=== PATIENT | male | born 1975 | race Caucasian/White ===

== ENCOUNTER 2020-05-18 09:43 | Outpatient (REF) | payer BC, SELFPAY ==
[2020-05-18 12:06] LABS: Alanine Aminotransferase 31 U/L (0-40); Albumin Level 4.6 g/dL (3.5-5.0); Alkaline Phosphatase 75 U/L (39-117); Anion Gap 10 (12-20); Aspartate Amino Transferase 24 U/L (5-37); Bilirubin Total 0.7 mg/dL (0.0-1.0); Blood Urea Nitrogen 17 mg/dL (9-16); Carbon Dioxide 28 mmol/L (22-29); Chloride 104 mmol/L (96-108); Cholesterol 156 mg/dL; Estimated Glomerular Filt Rate > 60; Glucose Fasting 89 mg/dL (60-99); HDL Cholesterol 36 mg/dL; LDL Cholesterol Calculated 84 mg/dl; Potassium 4.4 mmol/L (3.3-5.1); Sodium 138 mmol/L (135-145); Total Protein 7.4 g/dL (6.5-8.0); Triglycerides 180 mg/dL
[2020-05-18 12:15] LABS: TSH reflex Free T4 1.62 uIU/mL (0.32-4.0)
== END 2020-05-18 09:44 | disposition home or self-care (01) ==
LOC: HO.HMGCLDS 09:43
PROVIDERS: PCP Nurse Practitioner Family; Visit Provider Nurse Practitioner Family
DX: Z00.00 Encounter for general adult medical examination without abnormal findings (principal)
CPT/HCPCS: 36415; 80053; 80061; 84443

== ENCOUNTER 2021-04-18 14:07 | Outpatient (REF) | payer BC, SELFPAY ==
[2021-04-18 14:28] LABS: Binax Internal Control QC Valid; Binax Now Covid-19 Ag Negative (Negative); Binax Performed by: HO.BONILM
== END 2021-04-18 14:08 | disposition home or self-care (01) ==
LOC: HO.HMGCLDS 14:07
PROVIDERS: PCP Nurse Practitioner Family; Visit Provider Internal Medicine
DX: Z13.89 Encounter for screening for other disorder (principal)

== ENCOUNTER 2021-05-19 07:12 | Outpatient (REF) | payer BC, SELFPAY ==
[2021-05-19 11:21] LABS: MANUAL DIFF FLAG NO
[2021-05-19 11:29] LABS: Basophils Absolute Auto 0.1 X10*3/uL (0.0-0.2); Eosinophils Absolute Auto 0.2 X10*3/uL (0.0-0.4); Eosinophils Percent Auto 3.4 % (0-4); Hematocrit 43.9 % (42.0-52.0); Imm Gran Abs Auto 0.04 X10*3/uL (0.00-0.03); Imm Gran Pct Auto 0.6 % (0.0-0.4); Lymphocytes Absolute Auto 1.9 X10*3/uL (1.2-4.9); Mean Corpuscular HGB Conc 34.2 g/dl (31.0-36.0); Mean Corpuscular Hemoglobin 31.3 pg (27.0-33.0); Mean Corpuscular Volume 91.6 fL (80.0-98.0); Mean Platelet Volume 11.4 fL (9.4-12.4); Monocytes Absolute Auto 0.7 X10*3/uL (0.1-1.2); Monocytes Percent Auto 9.1 % (2-11); Neutrophils Absolute Auto 4.3 x10*3/uL (2.0-8.3); Neutrophils Percent Auto 59.9 % (45-73); Platelet Count 207 X10*3/uL (160-400); Red Blood Count 4.79 X10*6/uL (4.60-5.80); White Blood Count 7.1 X10*3/uL (4.8-10.8)
[2021-05-19 11:58] LABS: Appearance Urine CLEAR; Color Urine YELLOW; Glucose Urine UA NEG (NEG); Leukocyte Esterase Urine NEG (NEG); Nitrite Urine NEG (NEG); PH 5.5 (5.0-8.0); Specific Gravity - Urine 1.015 (1.005-1.025); UACC Culture Trigger NO; Urine Blood TRACE (NEG); Urine Ketones NEG (NEG); Urine Protein NEG (NEG-TRACE)
[2021-05-19 12:01] LABS: Alanine Aminotransferase 34 U/L (0-40); Albumin Level 4.2 g/dL (3.5-5.0); Alkaline Phosphatase 80 U/L (39-117); Anion Gap 12 (12-20); Aspartate Amino Transferase 35 U/L (5-37); Bilirubin Total 0.9 mg/dL (0.0-1.0); Blood Urea Nitrogen 19 mg/dL (9-16); Calcium 9.6 mg/dL (8.4-10.2); Carbon Dioxide 28 mmol/L (22-29); Chloride 102 mmol/L (96-108); Cholesterol 208 mg/dL; Estimated Glomerular Filt Rate 47; Glucose Fasting 93 mg/dL (60-99); HDL Cholesterol 40 mg/dL; LDL Cholesterol Calculated 105 mg/dl; Potassium 4.7 mmol/L (3.3-5.1); Sodium 137 mmol/L (135-145); Total Protein 7.9 g/dL (6.5-8.0); Triglycerides 318 mg/dL
[2021-05-19 12:02] LABS: TSH reflex Free T4 2.64 uIU/mL (0.32-4.0)
[2021-05-19 12:17] LABS: WBC Urine 0-2 /HPF (0-4)
[2021-05-19 12:18] LABS: RBC Urine 0 /HPF (0)
== END 2021-05-19 07:13 | disposition home or self-care (01) ==
LOC: HO.HMGCLDS 07:12
PROVIDERS: Absent Provider Urology; PCP Nurse Practitioner Family; Visit Provider Nurse Practitioner Family
DX: R03.0 Elevated blood-pressure reading, without diagnosis of hypertension (principal)
CPT/HCPCS: 36415; 80053; 80061; 81001; 81003; 84443; 85025

== ENCOUNTER 2021-05-26 06:53 | Outpatient (REF) | payer BC, SELFPAY ==
[2021-05-26 11:36] LABS: Appearance Urine CLEAR; Color Urine YELLOW; Glucose Urine UA NEG (NEG); Leukocyte Esterase Urine NEG (NEG); Nitrite Urine NEG (NEG); PH 5.5 (5.0-8.0); UACC Culture Trigger NO; Urine Blood TRACE (NEG); Urine Ketones NEG (NEG); Urine Protein NEG (NEG-TRACE)
[2021-05-26 11:55] LABS: RBC Urine 0-2 /HPF (0); WBC Urine 0 /HPF (0-4)
[2021-05-26 12:07] LABS: Alanine Aminotransferase 33 U/L (0-40); Albumin Level 4.2 g/dL (3.5-5.0); Alkaline Phosphatase 80 U/L (39-117); Anion Gap 14 (12-20); Aspartate Amino Transferase 28 U/L (5-37); Bilirubin Total 0.6 mg/dL (0.0-1.0); Blood Urea Nitrogen 16 mg/dL (9-16); Calcium 9.4 mg/dL (8.4-10.2); Carbon Dioxide 26 mmol/L (22-29); Chloride 103 mmol/L (96-108); Estimated Glomerular Filt Rate 49; Glucose Random 105 mg/dL (60-115); Potassium 4.6 mmol/L (3.3-5.1); Sodium 138 mmol/L (135-145); Total Protein 7.8 g/dL (6.5-8.0)
== END 2021-05-26 06:54 | disposition home or self-care (01) ==
LOC: HO.HMGCLDS 06:53
PROVIDERS: Visit Provider Nurse Practitioner Family
DX: R79.89 Other specified abnormal findings of blood chemistry (principal)
CPT/HCPCS: 36415; 80053; 81001

== ENCOUNTER 2022-06-21 07:15 | Outpatient (REF) | payer BC, SELFPAY ==
[2022-06-21 12:35] LABS: Alanine Aminotransferase 30 U/L (0-40); Albumin Level 4.1 g/dL (3.5-5.0); Alkaline Phosphatase 77 U/L (39-117); Aspartate Amino Transferase 22 U/L (5-37); Bilirubin Direct 0.3 mg/dL (0.0-0.5); Blood Urea Nitrogen 17 mg/dL (9-16); Estimated Glomerular Filt Rate 47; Total Protein 7.4 g/dL (6.5-8.0)
== END 2022-06-21 07:16 | disposition home or self-care (01) ==
LOC: HO.HMGCLDS 07:15
PROVIDERS: PCP Nurse Practitioner Family; Visit Provider Urology
DX: C64.1 Malignant neoplasm of right kidney, except renal pelvis (principal)
CPT/HCPCS: 36415; 80076; 82565; 84520

== ENCOUNTER 2023-04-25 10:06 | Outpatient (AMB) | payer BC, SELFPAY ==
[2023-04-25 10:34] VITALS: BP 124/88; PULSE 97; O2SAT 98; BMI 41.9
--- NOTE | 2023-04-25 10:34 | A.OFFPC_ITS ---
Vital Signs 04/25/23 10:34 Height 5 ft 11 in Weight 300 lb 6 oz BMI 41.9 BP 124/88 Blood Pressure Location Rt brachial Position Sitting Pulse 97 Pulse Source Pulse Oximeter Pulse Oximetry (%) 98 Oxygen Delivery Method Room Air Intake Visit Reasons: Right knee pain, req referral Intake Note: Pt is here for a same day visit for right knee pain and needs a referral pt had an MRI Allergies No Known Allergies Allergy (Verified 04/25/23 10:37) Medication List - Last Reconciled 04/25/23 by COMFORT Chris multivitamin (Daily Multi-Vitamin tablet) 1 tab PO DAILY Tobacco use date assessed: 04/25/23 Dental Screening Dental Screen Date: 04/25/23 Did you have a dental visit in the last 12 months?: No Did you have a dental problem in the last 6 months where you did not have access to dental care?: No Was dental information given to patient?: Patient has dentist HPI Right knee pain, req referral HPI Details Pt c/o right knee pain. He recently had an MRI at [facility] which showed a torn posterior horn meniscal root with medial meniscal extrusion, adjacent advanced medial femoral tibial osteoarthritis, knee joint effusion with mild synovitis, patellofemoral degenerative cartilage thinning, mucoid degeneration of the anterior and posterior cruciate ligaments. Pt reports ongoing pain with clicking and popping. Will refer to ortho. Denies fever, chills, and dizziness. [facility] Medical History Renal mass Surgical History History of nephrectomy History of nephrectomy, right H/O right knee surgery Family History Mother Hypertension Social History Housing: House Alcohol intake: current Alcohol intake frequency: a few times a month Patient Tobacco Use Status: Never used Tobacco e-Cigarette/Vaping Use: Never Used service: No Current occupational status: employed Current occupation: [email or web address] Current occupational exposures/hazards: Yes Cognitive needs: No Hearing needs: No Vision needs: No Review of Systems Const Reports as per HPI Physical exam (Primary Care) Vital Signs: Last Vital Signs Pulse 97 04/25/23 10:34 BP 124/88 04/25/23 10:34 Pulse Ox 98 04/25/23 10:34 Oxygen Delivery Method Room Air 04/25/23 10:34 BMI result Body Mass Index 41.9 Tobacco/Smoking Status: Tobacco use Status Tobacco use date assessed 04/25/23 04/25/23 10:39 Patient Tobacco Use Status Never used Tobacco 04/25/23 10:34 e-Cigarette/Vaping Use Never Used 04/25/23 10:39 Const General: cooperative Nutritional Appearance: obese morbidly obese Orientation/consciousness: patient oriented x3 Resp Effort & Inspection: normal respiratory effort Auscultation: clear to auscultation bilaterally Cardio Rate: regular rate Rhythm: regular rhythm Heart sounds: S1 normal heart sound present and S2 normal heart sound present Neuro General: patient oriented x3 Extrem Other: swelling to right knee, + mcmurrays Psych Appearance: grossly normal Mental Status: mental status grossly normal Speech and movement: Normal speech and movement present Affect: normal affect Attitude: cooperative Thought process: Normal thought process present Thought content: Normal thought content present Insight: Good insight present (Psych) Judgement: Good judgement present (Psych) Assessment and Plan Assessment & Plan (1) Right knee pain: Code(s): M25.561 - Pain in right knee Plan: Referred to ortho Plan The patient agreed to the use of a ophthalmic medical technician for this encounter. Scribed for COMFORT Parks by Jeanne Augustine ophthalmic medical technician, on 04/25/2023 at 10:50 EST. Orders: Referrals Orthopedics Referral M25.561 - Pain in right knee Coding Level of Care Code Est Pt Level 3 (62466) Diagnoses Right knee pain M25.561
== END 2023-04-25 10:58 | disposition home or self-care (01) ==
PROVIDERS: PCP Nurse Practitioner Family; Visit Provider Nurse Practitioner Family
DX: M25.561 Pain in right knee (principal)
CPT/HCPCS: 99213

== ENCOUNTER 2023-08-22 13:30 | Outpatient (AMB) | payer BC, SELFPAY ==
--- NOTE | 2023-08-22 14:04 | A.OFFPC_ITS ---
Vital Signs 08/22/23 14:06 Height 5 ft 11 in Weight 298 lb BMI 41.6 BP 110/74 Blood Pressure Location Rt brachial Position Sitting Pulse 72 Pulse Source Pulse Oximeter Pulse Oximetry (%) 98 Oxygen Delivery Method Room Air Intake Visit Reasons: Annual PE/Overdue Intake Note: Patient here for physical exam. Cologuard: 2023 Allergies No Known Allergies Allergy (Verified 04/25/23 10:37) Medication List - Last Reconciled 08/22/23 by COMFORT Chris multivitamin (Daily Multi-Vitamin tablet) 1 tab PO DAILY Tobacco use date assessed: 04/25/23 Dental Screening Dental Screen Date: 04/25/23 HPI Annual PE/Overdue HPI Details Pt is here for a PE. Will order labs. Cologuard is up to date. Pt follows up with hematology/oncology. [facility] Medical History Renal mass Surgical History History of nephrectomy History of nephrectomy, right H/O right knee surgery Family History Mother Hypertension Social History Housing: House Alcohol intake: current Alcohol intake frequency: a few times a month Patient Tobacco Use Status: Never used Tobacco e-Cigarette/Vaping Use: Never Used service: No Current occupational status: employed Current occupation: [employer] Current occupational exposures/hazards: Yes Cognitive needs: No Hearing needs: No Vision needs: No Questionnaire PHQ-9 Over the last 2 weeks, how often have you been bothered by any of the following problems? 1. Little interest or pleasure in doing things: not at all 2. Feeling down, depressed, or hopeless: not at all 3. Trouble falling or staying asleep, or sleeping too much: not at all 4. Feeling tired or having little energy: not at all 5. Poor appetite or overeating: not at all 6. Feeling bad about yourself - or that you are a failure or have let yourself or your family down: not at all 7. Trouble concentrating on things, such as reading the newspaper or watching television: not at all 8. Moving or speaking so slowly that other people could have noticed. Or the opposite - being so fidgety or restless that you have been moving around a lot more than usual: not at all 9. Thoughts that you would be better off or of hurting yourself in some way: not at all Total score: 0 Depression Screening Interpretation: Negative Depression Screening Done: Yes 57449 - PHQ-9 Billing: Yes Source: Developed by Drs. Grady Starkey, Nemo Kumari, Juan Ortiz and colleagues, with an educational rodolfo from [employer]. Thrive Questionnaire Date Thrive assessed: 08/22/23 I am a: Patient What is your living situation today?: I have a steady place to live Within the past 12 months, did the food you bought not last and you didn't have the money to get more?: Never true Within the past 12 months, did you worry whether your food would run out before you got money to buy more?: Never true Do you have trouble paying for medicines?: No Do you have trouble getting transportation to medical appointments?: No Do you have trouble paying your heating and electricity bill?: No Do you have trouble taking care of your child, family member or friend?: No Do you have trouble with day-to-day activities such as bathing, preparing meals, shopping, managing finances, etc.?: No Are you currently unemployed and looking for a job?: No Are you interested in more education?: No Currently or been in a relationship where the following occur: I choose not to answer this question THRIVE Score: 0 JOSUE-7 AMB Questionnaire JOSUE-7 Date JOSUE - 7 assessed: 08/22/23 Feeling nervous, anxious, or on edge: 0 = Not at all Not being able to stop or control worryin = Not at all Worrying too much about different things: 0 = Not at all Trouble relaxin = Not at all Being so restless that it is hard to sit still: 0 = Not at all Becoming easily annoyed or irritable: 0 = Not at all Feeling afraid as if something awful might happen: 0 = Not at all Total JOSUE-7 score (0-4 normal; 5-9 mild; 10-14 moderate; 15-21 severe): 0 Source: Developed by Drs. Grady Starkey, Nemo Kumari, Juan Ortiz and colleagues, with an educational rodolfo from [employer]. JOSUE-7 Assessment Billing JOSUE-7 Assessment Tool: JOSUE-7 Assessment 83962 Review of Systems Const Denies chills and Denies fever(s) Eyes Denies blurry vision ENT Denies vertigo, Denies dizziness and Denies sore throat Card Denies chest pain at rest, Denies chest pain with activity, Denies diaphoresis, Denies dyspnea and Denies dyspnea on exertion Resp Denies cough, Denies dyspnea, Denies dyspnea on exertion and Denies wheezing GI Denies abdominal pain, Denies melena, Denies hematochezia, Denies constipation, Denies diarrhea and Denies loose stools Denies hematuria Musc Denies numbness and Denies tingling Skin/Breast Denies lesions Neuro Denies vertigo, Denies dizziness, Denies numbness and Denies tingling Psych Denies anxiety, Denies depression, Denies homicidal ideation, Denies suicidal ideation and Denies other (substance abuse) Aller/Immun Denies wheezing Physical exam (Primary Care) Vital Signs: Last Vital Signs Pulse 72 08/22/23 14:06 BP 110/74 08/22/23 14:06 Pulse Ox 98 08/22/23 14:06 Oxygen Delivery Method Room Air 08/22/23 14:06 BMI result Body Mass Index 41.6 Tobacco/Smoking Status: Tobacco use Status Tobacco use date assessed 04/25/23 08/22/23 14:05 Patient Tobacco Use Status Never used Tobacco 08/22/23 14:05 e-Cigarette/Vaping Use Never Used 08/22/23 14:05 PHQ-9: PHQ-9 Score PHQ-9: Total score 0 08/22/23 14:16 Depression Screening Interpretation: Negative Thrive Assessment: Date of Thrive Assessment Date Thrive assessed 08/22/23 08/22/23 14:12 Currently or been in a relationship where the following occur: I choose not to answer this question Const General: cooperative Nutritional Appearance: obese morbidly obese Orientation/consciousness: patient oriented x3 HENMT Head: Yes normal to inspection, Yes normocephalic and Yes atraumatic Ears: TM's normal bilaterally Eyes General: appearance normal, both eyes and all related structures Alignment and Position: alignment normal and position normal Neck Neck: Yes normal visual inspection and Yes no lymphadenopathy Thyroid: Thyroid normal Resp Effort & Inspection: normal respiratory effort Auscultation: clear to auscultation bilaterally Cardio Rate: regular rate Rhythm: regular rhythm Heart sounds: S1 normal heart sound present, S2 normal heart sound present and no murmurs GI Palpation (GI): Soft to palpation and nontender Auscultation: normal bowel sounds Male General Exam: Yes normal external exam Penis: normal penis Scrotum: scrotum normal, testes descended bilaterally and no inguinal hernias Testes: no testicular mass Skin Rashes: no rashes Neuro General: patient oriented x3, moves all extremities, no focal motor deficits and deep tendon reflexes 2+ bilaterally Romberg Test: Negative Psych Appearance: grossly normal Mental Status: mental status grossly normal Speech and movement: Normal speech and movement present Affect: normal affect Attitude: cooperative Thought process: Normal thought process present Thought content: Normal thought content present Insight: Good insight present (Psych) Judgement: Good judgement present (Psych) Assessment and Plan Assessment & Plan (1) Physical exam: Code(s): Z.00 - Encounter for general adult medical examination without abnormal findings Plan: Labs ordered Plan The patient agreed to the use of a emergency medical technician for this encounter. Scribed for COMFORT Parks by Jeanne Augustine emergency medical technician, on 08/22/2023 at 14:15 EST. Orders: Orders Complete Blood Count Auto Diff Today Z00.00 - Encounter for general adult medical examination without abnormal findings Comprehensive [place]. Panel Fast Today Z00.00 - Encounter for general adult medical examination without abnormal findings Lipid Panel Today Z00.00 - Encounter for general adult medical examination without abnormal findings TSH reflex Free T4 Today Z00.00 - Encounter for general adult medical examination without abnormal findings UA CC w/rflx Micro + Cult Today Z00.00 - Encounter for general adult medical examination without abnormal findings Coding Level of Care Code Est Pt Prev Care 40-64y(80379) Diagnoses Physical exam Z00. Additional Codes JOSUE-7 Assessment Billing - JOSUE-7 Assessment Tool: JOSUE-7 Assessment [id number] ([id number])
[2023-08-22 14:06] VITALS: BP 110/74; PULSE 72; O2SAT 98; BMI 41.6
== END 2023-08-22 14:32 | disposition home or self-care (01) ==
LOC: HO.HMGC 14:03
PROVIDERS: PCP Nurse Practitioner Family; Visit Provider Nurse Practitioner Family
DX: Z00.00 Encounter for general adult medical examination without abnormal findings (principal)
CPT/HCPCS: 99396

== ENCOUNTER 2024-02-14 06:06 | Outpatient (REF) | payer BC, SELFPAY ==
[2024-02-14 10:06] LABS: MANUAL DIFF FLAG NO
[2024-02-14 10:13] LABS: Appearance Urine Turbid; Color Urine Yellow; Glucose Urine UA Negative (Negative); Leukocyte Esterase Urine Negative (Negative); Nitrite Urine Negative (Negative); Specific Gravity - Urine 1.015 (1.005-1.025); Urine Blood Negative (Negative); Urine Ketones Negative (Negative); Urine Protein Negative (Neg-Trace)
[2024-02-14 10:27] LABS: Basophils Absolute Auto 0.1 X10*3/uL (0.0-0.2); Basophils Percent Auto 1.2 % (0-2); Eosinophils Absolute Auto 0.2 X10*3/uL (0.0-0.4); Eosinophils Percent Auto 2.6 % (0-4); Hematocrit 48.6 % (42.0-52.0); Hemoglobin 16.2 g/dl (14.0-18.0); Imm Gran Abs Auto 0.04 X10*3/uL (0.00-0.03); Imm Gran Pct Auto 0.5 % (0.0-0.4); Lymphocytes Absolute Auto 2.1 X10*3/uL (1.2-4.9); Lymphocytes Percent Auto 27.5 % (20-40); Mean Corpuscular HGB Conc 33.3 g/dl (31.0-36.0); Mean Corpuscular Volume 95.9 fL (80.0-98.0); Mean Platelet Volume 11.4 fL (9.4-12.4); Monocytes Absolute Auto 0.7 X10*3/uL (0.1-1.2); Monocytes Percent Auto 8.9 % (2-11); Neutrophils Absolute Auto 4.6 x10*3/uL (2.0-8.3); Neutrophils Percent Auto 59.3 % (45-73); Platelet Count 231 X10*3/uL (160-400); Red Blood Count 5.07 X10*6/uL (4.60-5.80); Red Cell Distribution Width 12.3 % (11.0-16.0); White Blood Count 7.7 X10*3/uL (4.8-10.8)
[2024-02-14 10:36] LABS: Alanine Aminotransferase 39 U/L (0-40); Albumin Level 4.2 g/dL (3.5-5.0); Alkaline Phosphatase 77 U/L (39-117); Anion Gap 10 (12-20); Aspartate Amino Transferase 28 U/L (5-37); Bilirubin Total 0.6 mg/dL (0.0-1.0); Blood Urea Nitrogen 16 mg/dL (9-16); Carbon Dioxide 29 mmol/L (22-29); Chloride 104 mmol/L (96-108); Cholesterol 175 mg/dL (<200); Estimated Glomerular Filt Rate 52; Glucose Fasting 92 mg/dL (60-99); HDL Cholesterol 38 mg/dL (>40); LDL Cholesterol Calculated 99 mg/dL (<100); Potassium 4.4 mmol/L (3.3-5.1); Sodium 139 mmol/L (135-145); Total Protein 7.6 g/dL (6.5-8.0); Triglycerides 194 mg/dL (<150)
[2024-02-21 13:57] LABS: Testosterone, Free 57.4 pg/mL (35.0-155.0); Testosterone, Total 317 ng/dL (250-1100)
== END 2024-02-14 06:07 | disposition home or self-care (01) ==
LOC: HO.HMGCLDS 06:06
PROVIDERS: PCP Nurse Practitioner Family; Referring Provider Internal Medicine; Visit Provider Nurse Practitioner Family
DX: Z00.00 Encounter for general adult medical examination without abnormal findings (principal); R53.83 Other fatigue
CPT/HCPCS: 36415; 80053; 80061; 81003; 84402; 84403; 84443; 85025

== ENCOUNTER 2024-09-22 08:15 | Outpatient (AMB) | payer BC, SELFPAY ==
--- NOTE | 2024-09-22 08:17 | MHC.PC.OV ---
Vital Signs 09/22/24 08:18 Height 5 ft 11 in Weight 258 lb BMI 36.0 BP 110/72 Blood Pressure Location Lt brachial Position Sitting Respiration 16 Pulse 77 Pulse Source Pulse Oximeter Temp 98.1 F Temp Source Oral Pulse Oximetry (%) 97 Oxygen Delivery Method Room Air Intake Visit Reasons: Annual PE/Overdue Allergies No Known Allergies Allergy (Verified 09/22/24 08:46) Medication List - Last Reconciled 09/22/24 by KAYLA Chris No Known Home Meds Tobacco use date assessed: 09/22/24 Dental Screening Dental Screen Date: 09/22/24 HPI Annual PE/Overdue HPI Details History of Present Illness The patient is a 49-year-old male presenting for a physical examination. He has a history of nephrectomy performed in 2020 due to carcinoma of the kidney and continues to see an oncologist annually for follow-up care. The patient is actively seeking a new financial developer and plans to communicate his choice through the patient portal. He reports being in good spirits, having lost weight, and maintaining physical activity through [employer]. He underwent a right total knee replacement recently, with the scar healing well and full range of motion achieved in the right lower extremity. He experiences no difficulty with extension or flexion. Health Maintenance Social History - Exercise: Engages in physical activity through [employer] Review of Systems Physical Exam General: Cooperative, healthy appearing, comfortable, no acute distress and well developed Orientation: Patient oriented x3 Limitations: No limitations Head: Normal to inspection Ears: Hearing grossly normal bilaterally Nose: Normal external nose present Face and sinus: Normal facial exam Eyes: Appearance normal, both eyes and all related structures Neck: Normal visual inspection and Yes full ROM Respiratory: Normal respiratory effort and able to speak in complete sentences. Clear to auscultation bilaterally Cardiovascular: Regular rate and rhythm. Normal S1 and S2 GI: Normal to inspection. Soft to palpation and nontender, scarring noted to abd (lap sites) : Testicles without masses/lesions and no hernias appreciated Skin: No rashes or lesions noted Neuro: Patient oriented x3 Extremities: Normal to inspection, full range of motion to right lower extremity extension or flexion without difficulty Results Plan The patient will continue to follow up with his oncologist annually for monitoring of his kidney carcinoma status. He is advised to select a new financial developer and communicate his choice through the patient portal for further renal management. [facility] Medical History Osteoarthritis of right knee Renal mass Surgical History History of total right knee replacement History of nephrectomy History of nephrectomy, right H/O right knee surgery Family History Mother Hypertension Social History Housing: House Alcohol intake: current Alcohol intake frequency: a few times a month Patient Tobacco Use Status: Never used Tobacco e-Cigarette/Vaping Use: Never Used service: No Current occupational status: employed Current occupation: [employer] Current occupational exposures/hazards: Yes Cognitive needs: No Hearing needs: No Vision needs: No Questionnaire PHQ-9 Over the last 2 weeks, how often have you been bothered by any of the following problems? 1. Little interest or pleasure in doing things: not at all 2. Feeling down, depressed, or hopeless: not at all 3. Trouble falling or staying asleep, or sleeping too much: not at all 4. Feeling tired or having little energy: not at all 5. Poor appetite or overeating: not at all 6. Feeling bad about yourself - or that you are a failure or have let yourself or your family down: not at all 7. Trouble concentrating on things, such as reading the newspaper or watching television: not at all 8. Moving or speaking so slowly that other people could have noticed. Or the opposite - being so fidgety or restless that you have been moving around a lot more than usual: not at all 9. Thoughts that you would be better off or of hurting yourself in some way: not at all Total score: 0 Depression Screening Interpretation: Negative Depression Screening Done: Yes 70425 - PHQ-9 Billing: Yes Source: Developed by Drs. Grady Starkey, Nemo Kumari, Juan Ortiz and colleagues, with an educational rodolfo from [employer]. Thrive Questionnaire Date Thrive assessed: 09/22/24 I am a: Patient What is your living situation today?: I have a steady place to live Within the past 12 months, did the food you bought not last and you didn't have the money to get more?: Never true Within the past 12 months, did you worry whether your food would run out before you got money to buy more?: Never true Do you have trouble paying for medicines?: No Do you have trouble getting transportation to medical appointments?: No Do you have trouble paying your heating and electricity bill?: No Do you have trouble taking care of your child, family member or friend?: No Do you have trouble with day-to-day activities such as bathing, preparing meals, shopping, managing finances, etc.?: No Are you currently unemployed and looking for a job?: No Are you interested in more education?: No THRIVE Score: 0 AUDIT C Alcohol Use Questionnaire (AUDIT-C) 1. How often do you have a drink containing alcohol?: Monthly or less 2. How many drinks containing alcohol do you have on a typical day when you are drinking?: 1 or 2 3. How often do you have six or more drinks on one occasion?: Never Total Score: 1 JOSUE-7 AMB Questionnaire JOSUE-7 Date JOSUE - 7 assessed: 09/22/24 Feeling nervous, anxious, or on edge: 0 = Not at all Not being able to stop or control worryin = Not at all Worrying too much about different things: 0 = Not at all Trouble relaxin = Not at all Being so restless that it is hard to sit still: 0 = Not at all Becoming easily annoyed or irritable: 0 = Not at all Feeling afraid as if something awful might happen: 0 = Not at all Total JOSUE-7 score (0-4 normal; 5-9 mild; 10-14 moderate; 15-21 severe): 0 Source: Developed by Drs. Grady Starkey, Nemo Kumari, Juan Ortiz and colleagues, with an educational rodolfo from [employer]. Physical exam (Primary Care) Vital Signs: Last Vital Signs Temp 98.1 F 09/22/24 08:18 Pulse 77 09/22/24 08:18 Resp 16 09/22/24 08:18 BP 110/72 09/22/24 08:18 Pulse Ox 97 09/22/24 08:18 Oxygen Delivery Method Room Air 09/22/24 08:18 BMI result Body Mass Index 36.0 Tobacco/Smoking Status: Tobacco use Status Tobacco use date assessed 09/22/24 09/22/24 08:21 Patient Tobacco Use Status Never used Tobacco 09/22/24 08:21 e-Cigarette/Vaping Use Never Used 09/22/24 08:21 PHQ-9: PHQ-9 Score PHQ-9: Total score 0 09/22/24 08:21 Depression Screening Interpretation: Negative Thrive Assessment: Date of Thrive Assessment Date Thrive assessed 09/22/24 09/22/24 08:23 Coding Level of Care Code Est Pt Prev Care 40-64y(62536) Diagnoses Physical exam Z00. Screening PSA (prostate specific antigen) Z12.5 Additional Codes PHQ-9 - 91418 - PHQ-9 Billing: Yes ([id number]) Assessment & Plan Assessment & Plan (1) Physical exam: Code(s): Z00.00 - Encounter for general adult medical examination without abnormal findings Category: Medical (2) Screening PSA (prostate specific antigen): Code(s): Z12.5 - Encounter for screening for malignant neoplasm of prostate Category: Medical Plan . Orders: Orders TSH reflex Free T4 Today Z00.00 - Encounter for general adult medical examination without abnormal findings Prostate Specific Antigen Scr Today Z12.5 - Encounter for screening for malignant neoplasm of prostate Complete Blood Count Auto Diff Today Z00.00 - Encounter for general adult medical examination without abnormal findings Comprehensive [place]. Panel Fast Today Z00.00 - Encounter for general adult medical examination without abnormal findings UA CC w/rflx Micro + Cult Today Z00.00 - Encounter for general adult medical examination without abnormal findings Lipid Panel Today Z00.00 - Encounter for general adult medical examination without abnormal findings
[2024-09-22 08:18] VITALS: BP 110/72; PULSE 77; RESP 16; TEMP 36.7; O2SAT 97; BMI 36.0
--- OUTSIDE RECORDS SUMMARY | 2024-09-22 08:21 | XMS_ITS | Clinical Summary ---
Author Organization [facility] Address [address] [place] [address] Phone Care Team Providers Care Outside Industrial Sales Representative Name Role Phone Elie Snyder NP Primary Care Provider Allergies No known active allergies Medications traMADoL (ULTRAM) 50 mg tablet TAKE 1-2 TABLETS BY MOUTH EVERY 6 HOURS NEEDED FOR MILD PAIN AFTER SURGERY 08/15/2024 Active aspirin 325 mg EC tablet TAKE 1 TABLET TWICE A DAY BY ORAL ROUTE FOR 30 DAYS, FOR START 08/05/2024. Active Active Problems Problem Noted Date Diagnosed Date Lung nodule, multiple 06/24/2021 Renal cell carcinoma of righ t kidney ([facility] V24, [facility] V28) 06/24/2021 Encounters Date Type Department Care Team Description 08/22/2024 9:15 AM EDT Office Visit [facility] Hematology Oncology [address] [place] [address] Dionna Humphries MD Renal cell carcinoma of right kidney ([facility] V24, [facility] V28) (Primary Dx); Lung nodule, multiple from Last 3 Months Surgical History Surgery Date Site/Laterality Comments KNEE SURGERY PROCEDURE:KNEE SURGERY;COMMENT:right Family History Medical History Relation Name Comments Cancer Father Cancer Mother Relation Name Status Comments Father Mother Social History Tobacco Use Types Packs/Day Years Used Date Smoking Tobacco: Former Smokeless Tobacco: Former Tobacco Cessation:Counseling Given: Not Answered Alcohol Use Standard Drinks/Week Comments Yes 2 (1 standard drink = 0.6 oz pur e alcohol) Sex and Gender Information Value Date Recorded Sex Assigned at Not on file Legal Sex Male 11:09 AM EST Gender Identity Not on file Sexual Orientation Not on file Obstetrics History Last Filed Vital Signs Vital Sign Reading Time Taken Comments Blood Pressure 141/80 08/22/2024 9:23 AM EDT Pulse 75 08/22/2024 9:23 AM EDT Temperature 36.4 C (97.6 F) 08/22/2024 9:23 AM EDT Respiratory Rate - - Oxygen Saturation 99% 08/22/2024 9:23 AM EDT Inhaled Oxygen Concentration - - Weight 118 kg (261 lb) 08/22/2024 9:23 AM EDT Height 180.3 cm (5' 11 ) 08/22/2024 9:23 AM EDT Body Mass Index 36.4 08/22/2024 9:23 AM EDT Plan of Treatment Upcoming Encounters Date Type Department Care Team (Late st Contact Info) Description 08/11/2025 9:00 AM EDT Office Visit [facility] Hematology Oncology [address] [place] [address] Sumi-Dionna Beckford MD [address] [place] [address] Health Maintenance Due Date Last Done Comments DTaP,Tdap,and Td Vaccines (1 - Tdap) 07/05/1995 Hepatitis B Vaccines (1 of 3 - 19+ 3-dose series) 07/05/1995 Pneumococcal Vaccine: Pediatrics (0 to 5 Years) and At-Risk Patients (6 to 64 Years) (1 of 2 - PCV) 07/05/1995 Cholesterol Screening (Lipid Panel) 03/11/2022 Colorectal Cancer Screening: Colonoscopy 03/11/2022 Depression Screening 03/11/2022 HIV Screening 03/11/2022 Hepatitis C Screening 03/11/2022 Social Influencers of Health Screening 03/11/2022 COVID-19 Vaccine (4 - 2023-2 5 season) 2023 04/07/2021, 06/14/2020, 05/17/2020 Influenza Vaccine (Season Ended) 2024 01/26/2014, 04/16/2012 HIB Vaccines Aged Out No longer eligi ble based on patient's age to complete this topic HPV Vaccines Aged Out No longer eligi ble based on patient's age to complete this topic Hepatitis A Vaccines Aged Out No long er eligible based on patient's age to complete this topic IPV Vaccines Aged Out No longer eligi ble based on patient's age to complete this topic MMR Vaccines Aged Out No longer eligi ble based on patient's age to complete this topic Meningococcal ACWY Vaccine Aged Out N o longer eligible based on patient's age to complete this topic Meningococcal B Vaccine Aged Out No l onger eligible based on patient's age to complete this topic RSV Immunization Patients Under 20 months Aged Out No longer eligible b ased on patient's age to complete this topic Varicella Vaccines Aged Out No longer eligible based on patient's age to complete this topic Insurance [facility] Care Teams Outside Industrial Sales Representative Relationship Specialty Start Date End Date Elie Snyder NP [address] [place], [place] PCP - General Family Medicine 06/09/21
== END 2024-09-22 10:03 | disposition home or self-care (01) ==
LOC: HO.HMCC 08:15
PROVIDERS: PCP Nurse Practitioner Family; Visit Provider Nurse Practitioner Family
DX: Z00.00 Encounter for general adult medical examination without abnormal findings (principal); Z12.5 Encounter for screening for malignant neoplasm of prostate

== ENCOUNTER → 2024-09-22 08:15 | Outpatient (BNVA) | payer BC, SELFPAY | PROVIDERS: PCP Nurse Practitioner Family; Visit Provider Nurse Practitioner Family | DX: Z00.00 Encounter for general adult medical examination without abnormal findings (principal); Z90.5 Acquired absence of kidney; Z85.528 Personal history of other malignant neoplasm of kidney | CPT/HCPCS: 96127 ==

== ENCOUNTER 2024-12-04 06:30 | Outpatient (REF) | payer BC, SELFPAY ==
--- OUTSIDE RECORDS SUMMARY | 2024-12-04 06:33 | XMS_ITS | Clinical Summary ---
Author Organization [facility] Address [address] [address] Phone Care Team Providers Care Staff Psychologist Name Role Phone Pcp, Unknown Primary Care Provider Unavailabl e Social History Tobacco Use Types Packs/Day Years Used Date Smoking Tobacco: Never Assessed Education Answer Date Recorded Are you interested in more education? Not on chandler e 07/28/2022 Are you concerned about learning? Not on file 07/28/2022 No 07/28/2022 No 07/28/2022 Digital Access Answer Date Recorded No 08/26/2022 No 08/26/2022 Reliable internet access at home? Not on file 08/26/2022 Device with a working camera? Not on file Sex and Gender Information Value Date Recorded Sex Assigned at Not on file Legal Sex Male 10:30 PM EDT Gender Identity Not on file Sexual Orientation Not on file Last Filed Vital Signs Vital Sign Reading Time Taken Comments Blood Pressure - - Pulse 68 05/21/2012 10:55 AM EST Temperature - - Respiratory Rate 16 05/21/2012 10:5 5 AM EST Oxygen Saturation - - Inhaled Oxygen Concentration - - Weight 124.5 kg (274 lb 6.4 oz) 013 10:55 AM EST Height 178.4 cm (5' 10.25 ) 05/21/2012 10:55 AM EST Body Mass Index 39.09 05/21/2012 10:55 AM EST Plan of Treatment Health Maintenance Due Date Last Done Comments LIPID PANEL 1976 DEPRESSION SCREENING 1988 SMOKING Hx and SMOKELESS TOBACCO SCREENING 1989 HEPATITIS C SCREENING 1994 HIV ONE-TIME SCREENING (18-6 5 YEARS) 1994 COLOGUARD 2021 COLONOSCOPY 2021 COLORECTAL CANCER SCREENING 2021 FIT TEST 2021 FOBT 2021 SIGMOIDOSCOPY 2021 VIRTUAL COLONOSCOPY 2021 Adult Td,Tdap Booster 05/21/2022 05/21/2012 INFLUENZA VACCINE (#1) 2024 4, 04/16/2012 COVID-19 VACCINE (2024-2 6 season) 2024 06/14/2020, 05/17/2020 HEPATITIS A VACCINES Aged Out No long er eligible based on patient's age to complete this topic HIB VACCINES Aged Out No longer eligi ble based on patient's age to complete this topic MENINGOCOCCAL VACCINES (ACWY) Aged Out No longer eligible based on patient's age to complete this topic MENINGOCOCCAL VACCINES (B) Aged Out N o longer eligible based on patient's age to complete this topic PNEUMOCOCCAL VACCINES (0-49 years) Aged Out No longer eligible b ased on patient's age to complete this topic Medical Devices Not on file Care Teams Staff Psychologist Relationship Specialty Start Date End Date Pcp, Unknown PCP - General 07/15/19 Additional Source Comments The information contained in this document represents components of the legal health record. It is not the complete legal health record.[facility]
--- OUTSIDE RECORDS SUMMARY | 2024-12-04 06:33 | XMS_ITS | Encounter Summary ---
Author Organization [facility] Address [address] [place] [address] Phone Care Team Providers Care Line Driver Name Role Phone Sandi Toussaint MD Primary Care Provider +1- [phone] Encounter Details Date Type Department Care Team (Late st Contact Info) Description 12/06/2021 Documentation Only [facility] [place], [address] [place] [address] Kaleb Solomon MD [address] [place] [address] Social History Tobacco Use Types Packs/Day Years Used Date Smoking Tobacco: Never Smokeless Tobacco: Never Alcohol Use Standard Drinks/Week Comments Never 0 (1 standard drink = 0.6 oz pur e alcohol) Sex and Gender Information Value Date Recorded Sex Assigned at Not on file Legal Sex Male 9:12 PM EDT Gender Identity Not on file Sexual Orientation Not on file documented as of this encounter Plan of Treatment Not on file documented as of this encounter Visit Diagnoses Not on filedocumented in this encounter Care Teams Line Driver Relationship Specialty Start Date End Date Sandi Toussaint MD [address] [place] [address] PCP - General Internal Medicine 11/23/20 documented as of this encounter
--- OUTSIDE RECORDS SUMMARY | 2024-12-04 06:33 | XMS_ITS | Encounter Summary ---
Author Organization [facility] Address [address] [place] [address] Phone Care Team Providers Care Barrelhead Inspector Name Role Phone Sandi Toussaint MD Primary Care Provider [phone]- [phone] Encounter Details Date Type Department Care Team (Late st Contact Info) Description 12/06/2021 Documentation Only [facility] [place], [address] [place] [address] Kaleb Solomon MD [address] [place] [address] Social History Tobacco Use Types [...] on filedocumented in this encounter Care Teams Barrelhead Inspector Relationship Specialty Start Date End Date Sandi Toussaint MD [address] [place] [address] PCP - General Internal Medicine 11/23/20 documented as of this encounter
--- OUTSIDE RECORDS SUMMARY | 2024-12-04 06:33 | XMS_ITS | Clinical Summary ---
Author Organization [facility], Address [address] [address] [place] [address] Phone Care Team Providers Care Performance Test Consultant Name Role Phone Sandi Toussaint MD Primary Care Provider +1- [phone] Allergies No known active allergies Medications aspirin (ST GIORGIO) 81 MG EC tablet Take 81 mg by mouth 1 (one) time each day Active Multiple Vitamin (multivitamin) capsule Take 1 capsule by mouth 1 (one) time each day Active Active Problems Problem Noted Date Diagnosed Date Hematuria 12/07/2020 Renal stone 12/07/2020 Family History Medical History Relation Comments Cancer Father Diabetes Mother Relation Status Comments Father Mother Social History Tobacco [...] on file Sexual Orientation Not on file Plan of Treatment Health Maintenance Due Date Last Done Comments Hepatitis B Vaccine (1 of 3 - 19+ 3-dose series) 07/05/1995 Influenza Vaccine (#1) 2024 Pneumococcal Vaccine: Peds ( 0 to 5 Years) and At-Risk Patients (6 to 49 Years) Aged Out No longer eligible b ased on patient's age to complete this topic Insurance [facility] Care Teams Performance Test Consultant Relationship Specialty Start Date End Date Sandi Toussaint MD [address] [place] [address] PCP - General Internal Medicine 11/23/20
--- OUTSIDE RECORDS SUMMARY | 2024-12-04 06:33 | XMS_ITS | Clinical Summary ---
Author Organization [facility] Address [address] [place] [phone] Phone Care Team Providers Care Wardrobe Image Consultant Name Role Phone Elie Snyder NP Primary [...] cell carcinoma of righ t kidney ([facility] V24, [facility] V28) 06/24/2021 Surgical History Surgery Date Site/Laterality Comments KNEE [...] Care Team (Late st Contact Info) Description 01/01/2025 9:30 AM EDT Appointment [facility] CT Scan [address] [place] [phone] 08/11/2025 9:00 AM EDT Office Visit [facility] Hematology Oncology [address] [place] [address] Dionna Humphries MD [address] [place] [id number] Health Maintenance Due Date Last Done Comments DTaP,Tdap,and Td Vaccines (1 - Tdap) 07/05/1995 Hepatitis B Vaccines (1 of 3 - 19+ 3-dose series) 07/05/1995 Pneumococcal Vaccine: Pediatrics (0 to 5 Years) and At-Risk Patients (6 to 49 Years) (1 of 2 - PCV) 07/05/1995 Cholesterol Screening (Lipid Panel) 03/11/2022 Colorectal Cancer Screening: Colonoscopy 03/11/2022 HIV Screening 03/11/2022 Hepatitis C Screening 03/11/2022 Social Influencers of Health Screening 03/11/2022 COVID-19 Vaccine ( - 2023-2 5 season) 2023 04/07/2021, 06/14/2020, 05/17/2020 Depression Screening 04/02/2024 Influenza Vaccine (#1) 2024 4, 04/16/2012 HIB Vaccines Aged Out No longer [...] patient's age to complete this topic Insurance [facility] Care Teams Wardrobe Image Consultant Relationship Specialty Start Date End Date Elie Snyder NP [address] [place], [place] PCP - General Family Medicine 06/09/21
--- OUTSIDE RECORDS SUMMARY | 2024-12-04 06:33 | XMS_ITS | Clinical Summary ---
Author Organization [facility] Address [address] [place] [address] Care Team Providers Care Retail Manager Name Role Phone Elie Snyder Primary Care Provider [phone] Allergies No known active allergies Medications No known medications Active Problems Problem Noted Date Diagnosed Date Renal cell carcinoma of right kidney 06/24/2021 Cancer Staging:Clinical stage from 10/26/2020:Stage II(cT2a, cN0, cM0) - Signed by Dionna Horton MD on 10/24/2021 Lung nodule, multiple 06/24/2021 Family History Medical History Relation Name Comments Cancer Father Cancer Mother Relation Name Status Comments Father Mother Social History Tobacco Use Types Packs/Day Years Used Date Smoking Tobacco: Former Smokeless Tobacco: Former Comments:college years Alcohol Use Standard Drinks/Week Comments Yes 2 (1 standard drink = 0.6 oz pur e alcohol) Sex and Gender Information Value Date Recorded Sex Assigned at Male 03/13/2023 4:29 PM EST Gender Identity Not on file Sexual Orientation Not on file Job Start Date Occupation Industry Not on file Not on file Not on file Last Filed Vital Signs Vital Sign Reading Time Taken Comments Blood Pressure 129/94 08/17/2023 9:13 AM EDT Pulse 71 08/17/2023 9:13 AM EDT Temperature 36.6 C (97.9 F) 08/17/2023 9:13 AM EDT Respiratory Rate 18 03/14/2023 8:58 AM EST Oxygen Saturation 98% 08/17/2023 9:13 AM EDT Inhaled Oxygen Concentration - - Weight 133.7 kg (294 lb 12.8 oz) 08/17/2023 9:13 AM EDT Height 180.3 cm (5' 11 ) 06/30/2022 3:26 PM EDT Body Mass Index 41.12 06/30/2022 3:26 PM EDT Plan of Treatment Health Maintenance Due Date Last Done Comments Hepatitis B Vaccines (1 of 3 - 3-dose series) 1976 Hepatitis C Screening 1976 COVID-19 Vaccine (#1) 1981 Pneumococcal Vaccine (1 of 2 - PCV) 1982 Depression Screening 1988 BMI Counseling 1994 Preventative Health Evaluation 1994 DTap / Tdap / Td (1 - Tdap) 07/05/1995 Colon Cancer Screening (Colonoscopy) 2021 Influenza Vaccine (#1) 2024 RSV Ped < 20 months Aged Out No longe r eligible based on patient's age to complete this topic Care Teams Retail Manager Relationship Specialty Start Date End Date Elie Snyder [address] [facility] [place] [address] PCP - General Family Medicine 06/09/21
--- OUTSIDE RECORDS SUMMARY | 2024-12-04 06:33 | XMS_ITS | Encounter Summary ---
Author Organization [facility] Address [address] [place] [address] Phone Care Team Providers Care Instrument Repairer Name Role Phone Sandi Toussaint MD Primary Care Provider [phone]- [phone] Encounter Details Date Type Department Care Team (Late st Contact Info) Description 06/22/2022 Documentation Only [facility] [place], [address] [place] [address] Kaleb Solomon MD [address] [place] [address] Social History Tobacco Use Types [...] on filedocumented in this encounter Care Teams Instrument Repairer Relationship Specialty Start Date End Date Sandi Toussaint MD [address] [place] [address] PCP - General Internal Medicine 11/23/20 documented as of this encounter
[2024-12-04 10:18] LABS: MANUAL DIFF FLAG NO
[2024-12-04 10:20] LABS: Hematocrit 44.5 % (42.0-52.0); Hemoglobin 14.9 g/dl (14.0-18.0); Imm Gran Abs Auto 0.02 X10*3/uL (0.00-0.03); Imm Gran Pct Auto 0.3 % (0.0-0.4); Lymphocytes Absolute Auto 1.8 X10*3/uL (1.2-4.9); Mean Corpuscular HGB Conc 33.5 g/dl (31.0-36.0); Mean Corpuscular Hemoglobin 29.3 pg (27.0-33.0); Mean Corpuscular Volume 87.6 fL (80.0-98.0); NRBC Abs Auto 0.000 X10*3/uL (0.0-0.012); NRBC Pct Auto 0.0 /100WBC (0.0-0.2); Platelet Count 207 X10*3/uL (160-400); Red Blood Count 5.08 X10*6/uL (4.60-5.80); White Blood Count 6.3 X10*3/uL (4.8-10.8)
[2024-12-04 10:55] LABS: Alanine Aminotransferase 27 U/L (0-40); Albumin Level 4.5 g/dL (3.5-5.0); Alkaline Phosphatase 89 U/L (39-117); Anion Gap 11 (12-20); Aspartate Amino Transferase 28 U/L (5-37); Blood Urea Nitrogen 15 mg/dL (9-16); Calcium 9.3 mg/dL (8.4-10.2); Carbon Dioxide 26 mmol/L (22-29); Chloride 106 mmol/L (96-108); Cholesterol 187 mg/dL (<200); Estimated Glomerular Filt Rate 50; HDL Cholesterol 39 mg/dL (>40); Potassium 4.4 mmol/L (3.3-5.1); Sodium 139 mmol/L (135-145); Total Protein 7.7 g/dL (6.5-8.0); Triglycerides 227 mg/dL (<150)
[2024-12-04 11:08] LABS: Appearance Urine Cloudy; Glucose Urine UA Negative (Negative); PH 5.5 (5.0-9.0); Specific Gravity - Urine 1.015 (1.005-1.025)
== END 2024-12-04 06:31 | disposition home or self-care (01) ==
LOC: HO.HMGCLDS 06:30
PROVIDERS: PCP Nurse Practitioner Family; Visit Provider Nurse Practitioner Family
DX: Z00.00 Encounter for general adult medical examination without abnormal findings (principal); Z12.5 Encounter for screening for malignant neoplasm of prostate; Z13.29 Encounter for screening for other suspected endocrine disorder; Z13.6 Encounter for screening for cardiovascular disorders
CPT/HCPCS: 36415; 80053; 80061; 81003; 84153; 84443; 85025